=== PATIENT | male | born 1985 | race Caucasian/White ===

== ENCOUNTER 2017-04-05 13:49 | Emergency (ER) | payer MEDICAID ==
[2017-04-05 13:57] VITALS: BMI 37.6
[2017-04-05 14:00] VITALS: TEMP 98.5; O2SAT 100
[2017-04-05 14:29] LABS: PH,URINE 6.5 (4.7-8.0); URINE BILIRUBIN MODERATE (NEGATIVE); URINE BLOOD LARGE (NEGATIVE); URINE GLUCOSE (UA) 100 mg/dL (NEGATIVE); URINE KETONE TRACE mg/dL (NEGATIVE); URINE LEUKOCYTE ESTERASE MODERATE Leu/uL (NEGATIVE); URINE PROTEIN >=300 mg/dL (<30 mg/dL)
[2017-04-05 14:30] LABS: URINE APPEARANCE CLOUDY (CLEAR); URINE COLOR LIGHT BROWN (YELLOW)
--- NOTE | 2017-04-05 14:32 | ED PDOC ---
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 Patient states his symptoms began yesterday morning when he woke up. He states he had an overall feeling of body pain and fever which progressed to suprapubic pain in the evening. During the day he states increased urgency, frequency, and dysuria. Patient said the pain was a 5/10, worsened with urination, but did not take anything to relieve the pain. He states that this morning when he woke up to void, he noticed his urine was a darker color, which continuously darkened and progressed throughout the day. Patient denies previous occurrence, unprotected sex, history of STDs, history of kidney stones, chills, n/v/d, chest pain, shortness of breath. PMD: Dr. Guallpa PMH: Asthma, Anxiety Medications: Albuterol, Clonazepam 04/05/17 14:25 (Nicola Serrano) Past Medical History - Provider Review Nursing Documentation Reviewed: Yes - Infectious Disease Hx of Infectious Diseases: None - Cardiac Hx Cardiac Disorders: No - Pulmonary Hx Respiratory Disorders: Yes Hx Asthma: Yes - Neurological Hx Neurological Disorder: No - HEENT Hx HEENT Disorder: No - Renal Hx Renal Disorder: No - Endocrine/Metabolic Hx Endocrine Disorders: No - Hematological/Oncological Hx Blood Disorders: No - Integumentary Hx Dermatological Disorder: No - Musculoskeletal/Rheumatological Hx Musculoskeletal Disorders: No - Gastrointestinal Hx Gastrointestinal Disorders: No - Genitourinary/Gynecological Hx Genitourinary Disorders: No - Psychiatric Hx Psychophysiologic Disorder: Yes Hx Anxiety: Yes Hx Substance Use: No - Anesthesia Hx Anesthesia: No Family/Social History - Physician Review Nursing Documentation Reviewed: Yes Family/Social History: Other Smoking Status: Former Smoker Hx Alcohol Use: No Hx Substance Use: No Narrative Family History (Free Text): non-contributory 04/05/17 14:32 (Nicola Serrano) Allergies/Home Meds Allergies/Adverse Reactions: Allergies seafood Allergy (Uncoded 04/05/17 13:57) ANAPHYLAXIS Home Medications: Home Meds Medication Instructions Recorded Confirmed Albuterol HFA [Ventolin HFA 90 1 puff IH PRN PRN 04/05/17 04/05/17 mcg/actuation (8 g)] clonazePAM [Klonopin] 0 mg PO PRN PRN 04/05/17 04/05/17 Review of Systems - Physician Review All systems were reviewed & negative as marked: Yes - Review of Systems Constitutional: Normal Eyes: Normal Respiratory: absent: SOB, Cough Cardiovascular: absent: Chest Pain, Palpitations Gastrointestinal: Abdominal Pain (suprapubic pain). absent: Nausea, Vomiting Genitourinary Male: Dysuria, Frequency, Hematuria. absent: Normal Skin: Normal. absent: Rash Neurological: absent: Headache, Dizziness Endocrine: Normal Psychiatric: Normal Physical Exam Vital Signs Reviewed: Yes Temperature: Afebrile Blood Pressure: Normal Pulse: Regular Respiratory Rate: Normal Appearance: Positive for: Comfortable Pain Distress: Mild Mental Status: Positive for: Alert and Oriented X 3 - Systems Exam Head: Present: Atraumatic, Normocephalic Extroacular Muscles: Present: EOMI Mouth: Present: Moist Mucous Membranes Respiratory/Chest: Present: Clear to Auscultation, Good Air Exchange Cardiovascular: Present: Regular Rate and Rhythm, Normal S1, S2 Abdomen: Present: Tenderness (suprapubic). No: Normal Bowel Sounds (hypoactive) , Guarding Back: Present: Other (No CVA tenderness bilaterally) Neurological: Present: CN II-XII Intact Skin: Present: Warm, Normal Color Psychiatric: Present: Alert, Oriented x 3 Medical Decision Making - Lab Interpretations I have reviewed the lab results: Yes Interpretation: Abnormal lab values ED Course and Treatment: Assessment 31 year old male presenting with hematuria Plan - Urinalysis, Urine C&S - CBC, BMP - Urinalysis reveals UTI; will treat with Bactrim 04/05/17 14:38 (Nicola Serrano) 04/05/17 16:16 31 yo male presents with hematuria as per resident note. Agree with history and physical, disposition and plan. Abdomen - soft, NT, ND. Back: No CVAT. Patient's UA is positive for UTI. WBC midly elevated. Creatinine normal. Patient will be treated with outpatient tx of bactrim as prescribed. (Blake Hoffman) - Lab Interpretations Lab Results: 04/05/17 14:55 04/05/17 14:55 Lab Results 04/05/17 14:55: Sodium 139, Potassium 4.3, Chloride 101, Carbon Dioxide 28, Anion Gap 14, BUN 15, Creatinine 1.0, Est GFR ( Amer) > 60, Est GFR (Non- Af Amer) > 60, Random Glucose 82, Calcium 9.5 04/05/17 14:55: WBC 11.5 H, RBC 5.07, Hgb 15.1, Hct 43.1, MCV 85.0, MCH 29.8, MCHC 35.0, RDW 12.8, Plt Count 161, MPV 10.3, Gran % 75.2 H, Lymph % (Auto) 15.9 L, [place] % (Auto) 7.2 H, Eos % (Auto) 1.4 L, Baso % (Auto) 0.3, Gran # 8.63 H, Lymph # 1.8, [place] # 0.8 H, Eos # 0.2, Baso # 0.03 04/05/17 14:27: Urine Color Light brown, Urine Appearance Cloudy, Urine pH 6.5, Ur Specific [place] >= 1.030, Urine Protein >=300 H, Urine Glucose (UA) 100 H, Urine Ketones Trace H, Urine Blood Large H, Urine Nitrate Positive H, Urine Bilirubin Moderate H, Urine Urobilinogen 4.0 H, Ur Leukocyte Esterase Moderate H , Urine RBC Tntc, Urine WBC 25 - 30, Urine Bacteria Many Disposition/Present on Arrival - Present on Arrival Any Indicators Present on Arrival: No History of DVT/PE: No History of Uncontrolled Diabetes: No Urinary Catheter: No History of Decub. Ulcer: No History Surgical Site Infection Following: None - Disposition Have Diagnosis and Disposition been Completed?: Yes Disposition Time: 15:59 Patient Plan: Discharge - Disposition Diagnosis: UTI (urinary tract infection) Disposition: HOME/ ROUTINE Patient Problems: Current Active Problems Problem Status Onset UTI (urinary tract infection) Acute Condition: GOOD Discharge Instructions (ExitCare): Urinary Tract Infection in Men (ED) Additional Instructions: Mr. Anderson, thank you for letting us take care of you today.You were treated for a Urinary Tract Infection. The emergency medical care you received today was directed at your acute symptoms. If you were prescribed any medication, please fill it and take as directed. It may take several days for your symptoms to resolve. Return to the Emergency Department if your symptoms worsen, do not improve, or if you have any other problems. Thank you for allowing the [facility] team to be part of your care today. Prescriptions: Sulfamethoxazole/Trimethoprim [Bactrim DS 800 mg-160 mg] 1 tab PO Q12 #10 tab Referrals: PCP,NO [Primary Care Provider] - Follow up with primary
[2017-04-05 14:41] LABS: URINE BACTERIA MANY (NEG); URINE RBC TNTC /hpf (0-2); URINE WBC 25 - 30 /hpf (0-6)
[2017-04-05 15:16] LABS: BASO # 0.03 K/mm3 (0.0-2.0); BASO % 0.3 % (0.0-3.0); EOS # 0.2 (0.0-0.7); EOS % 1.4 % (1.5-5.0); GRAN # 8.63 (1.4-6.5); GRAN % 75.2 % (50.0-68.0); HEMATOCRIT 43.1 % (42.0-52.0); LYMPH # 1.8 (1.2-3.4); LYMPH % 15.9 % (22.0-35.0); MEAN CORPUSCULAR HEMOGLOBIN 29.8 pg (25.0-35.0); MEAN PLATELET VOLUME 10.3 fl (7.0-11.0); MONO # 0.8 (0.1-0.6); MONO % 7.2 % (1.0-6.0); RED CELL DISTRIBUTION WIDTH 12.8 % (11.5-14.5); WHITE BLOOD COUNT 11.5 10^3/ul (4.5-11.0)
[2017-04-05 15:54] LABS: BLOOD UREA NITROGEN 15 mg/dL (7-21); CALCIUM 9.5 mg/dL (8.4-10.5); CARBON DIOXIDE 28 mmol/L (21-33); CHLORIDE 101 mmol/L (98-107); GFR AFRICAN-AMERICAN > 60; GLUCOSE,RANDOM 82 mg/dL (70-110); POTASSIUM 4.3 mmol/L (3.6-5.0); SODIUM 139 mmol/L (132-148)
[2017-04-05 16:16] VITALS: BP 118/85; PULSE 85; RESP 18
== END 2017-04-05 16:16 | disposition home or self-care (01) ==
LOC: ED 13:49
DX: N39.0 Urinary tract infection, site not specified (principal)

== ENCOUNTER 2017-11-28 05:09 | Emergency (ER) | payer MEDICAID, OTHER ==
[2017-11-28 05:16] VITALS: BMI 36.6
[2017-11-28 05:20] VITALS: TEMP 97.5
[2017-11-28] MEDS ORDERED: Levalbuterol 1.25 MG/3 ML Inhal Soln UD IH STA (05:30)
--- NOTE | 2017-11-28 05:34 | ED PDOC ---
Arrival/HPI - General Chief Complaint: GI Problem Time Seen by Provider: 11/28/17 05:20 Historian: Patient - History of Present Illness Narrative History of Present Illness (Text): 11/28/17 05:31 A 31 year old male, whose past medical history includes asthma and anxiety, presents to the emergency department complaining of shortness of breath this morning. The patient notes that his symptoms woke him up from his sleep. He states that when he felt short of breath he became anxious and took 1/2 of a prescribed Clonazepam pill. He notes that he is still experiencing the shortness of breath. The patient denies fevers, chills, headache, dizziness, chest pain, cough, abdominal pain, nausea, vomiting, diarrhea, back pain, neck pain, urinary/bowel changes, or any other complaint. Time/Duration: Other (This Morning) Symptom Onset: Sudden Symptom Course: Unchanged Activities at Onset: Rest, Light Context: Home Past Medical History - Provider Review Nursing Documentation Reviewed: Yes - Infectious Disease Hx of Infectious Diseases: None - Cardiac Hx Cardiac Disorders: No - Pulmonary Hx Respiratory Disorders: Yes Hx Asthma: Yes - Neurological Hx Neurological Disorder: No - HEENT Hx HEENT Disorder: No - Renal Hx Renal Disorder: No - Endocrine/Metabolic Hx Endocrine Disorders: No - Hematological/Oncological Hx Blood Disorders: No - Integumentary Hx Dermatological Disorder: No - Musculoskeletal/Rheumatological Hx Musculoskeletal Disorders: No - Gastrointestinal Hx Gastrointestinal Disorders: Yes Hx Gastroesophageal Reflux: Yes - Genitourinary/Gynecological Hx Genitourinary Disorders: No - Psychiatric Hx Psychophysiologic Disorder: Yes Hx Anxiety: Yes Hx Substance Use: No - Anesthesia Hx Anesthesia: No Family/Social History - Physician Review Nursing Documentation Reviewed: Yes Family/Social History: No Known Family HX Smoking Status: Former Smoker Hx Alcohol Use: No Hx Substance Use: No Allergies/Home Meds Allergies/Adverse Reactions: Allergies seafood Allergy (Uncoded 11/28/17 05:18) ANAPHYLAXIS Home Medications: Home Meds Medication Instructions Recorded Confirmed Albuterol HFA [Ventolin HFA 90 1 puff IH PRN PRN 04/05/17 11/28/17 mcg/actuation (8 g)] clonazePAM [Klonopin] 0.5 mg PO PRN PRN 04/05/17 11/28/17 Review of Systems - Physician Review All systems were reviewed & negative as marked: Yes - Review of Systems Constitutional: absent: Fevers Cardiovascular: absent: Chest Pain Physical Exam - Physical Exam Narrative Physical Exam (Text): 11/28/17 05:33 Constitutional: No acute distress. Head: Normocephalic. Atraumatic. Eyes: PERRL. ENT: Moist mucous membranes. Airway patent. Tonsilar exudates without erythema. Neck: Supple. Cardiovascular: Regular rate. Chest: No tenderness. Respiratory: Clear to auscultation bilaterally. Left lower lung wheeze. GI: Soft. Nontender. Nondistended. Back: No CVA tenderness. Musculoskeletal: No tenderness or swelling of extremities. Skin: No rash. Neurologic: Alert, no focal deficit. Vital Signs Reviewed: Yes Vital Signs Temp Pulse Resp BP Pulse Ox 11/28/17 05:20 20 11/28/17 05:18 97.5 F L 94 H 18 143/87 97 Temperature: Hypothermic Blood Pressure: Normal Pulse: Tachycardic Respiratory Rate: Normal Appearance: Positive for: Well-Appearing, Non-Toxic, Comfortable Pain Distress: None Mental Status: Positive for: Alert and Oriented X 3 Medical Decision Making ED Course and Treatment: 11/28/17 05:34 Impression: A 31 year old male presents to the emergency department complaining of shortness of breath this morning. Plan: -- Chest X-ray -- Xopenex -- Reassess and disposition Progress Notes: CXR no acute disease. Rapid strep negative. Patient discharged, f/u PMD, instructed to return to ED for worsening breathing , fever, vomiting, or any other problem. - Lab Interpretations Lab Results: Lab Results 11/28/17 05:45: Grp A Beta Strep Ag Negative - RAD Interpretation Radiology Orders: 11/28/17 05:31 CHEST TWO VIEWS (PA/LAT) [RAD] Stat - Medication Orders Current Medication Orders: Discontinued Medications Levalbuterol HCl (Xopenex) 1.25 mg IH STAT STA Stop: 11/28/17 05:31 Last Admin: 11/28/17 05:48 Dose: 1.25 mg - Scribe Statement The provider has reviewed the documentation as recorded by the Salome [place] Provider Scribe Attestation: All medical record entries made by the Scribe were at my direction and personally dictated by me. I have reviewed the chart and agree that the record accurately reflects my personal performance of the history, physical exam, medical decision making, and the department course for this patient. I have also personally directed, reviewed, and agree with the discharge instructions and disposition. Disposition/Present on Arrival - Present on Arrival Any Indicators Present on Arrival: No History of DVT/PE: No History of Uncontrolled Diabetes: No Urinary Catheter: No History of Decub. Ulcer: No History Surgical Site Infection Following: None - Disposition Have Diagnosis and Disposition been Completed?: Yes Diagnosis: Dyspnea Disposition: HOME/ ROUTINE Disposition Time: 06:50 Patient Plan: Discharge Condition: STABLE Discharge Instructions (ExitCare): Shortness of Breath (Dyspnea) (DC) Forms: [employer] (Austrian)
--- NOTE | 2017-11-28 07:01 | RAD ---
HISTORY: dyspnea COMPARISON: No prior. TECHNIQUE: Chest PA and lateral FINDINGS: LUNGS: No active pulmonary disease. PLEURA: No significant pleural effusion identified. No pneumothorax apparent. CARDIOVASCULAR: Normal. OSSEOUS STRUCTURES: No significant abnormalities. VISUALIZED UPPER ABDOMEN: Normal. OTHER FINDINGS: None. IMPRESSION: No active disease. Concordant results with the preliminary interpretation rendered by the emergency department physician procedure.
[2017-11-28 07:10] VITALS: BP 121/74; PULSE 92; RESP 18; O2SAT 100
== END 2017-11-28 07:10 | disposition home or self-care (01) ==
LOC: ED 05:09
DX: R06.00 Dyspnea, unspecified (principal); J45.909 Unspecified asthma, uncomplicated; Z87.891 Personal history of nicotine dependence